=== PATIENT | male | born 2000 | race African-American/Black ===

== ENCOUNTER 2018-07-18 16:27 | Emergency (ER) | payer OTHER, MEDICAID ==
[~2018-07-18] VITALS: Ht 177.8 cm; Wt 149.7 kg
[2018-07-18] MEDS ORDERED: NAPROSYN500 MG PO (16:52)
[2018-07-18] MEDS ORDERED: FLEXERIL PO (16:52)
[2018-07-18 17:05] VITALS: BP 153/90
== END 2018-07-18 17:19 | disposition home or self-care (01) ==
LOC: M.ERS 16:27
DX: S46.812A Strain of other muscles, fascia and tendons at shoulder and upper arm level, left arm, initial encounter (principal); S46.811A Strain of other muscles, fascia and tendons at shoulder and upper arm level, right arm, initial encounter; M72.2 Plantar fascial fibromatosis; F17.210 Nicotine dependence, cigarettes, uncomplicated; V89.2XXA Person injured in unspecified motor-vehicle accident, traffic, initial encounter; Y93.89 Activity, other specified; Y92.89 Other specified places as the place of occurrence of the external cause; Y99.8 Other external cause status